=== PATIENT | male | born 1960 | race Caucasian/White ===

== ENCOUNTER 2018-03-19 03:53 | Inpatient (IN) | payer OTHER ==
[2018-03-19] VITALS (10 sets, daily range): BP systolic 94–160; BP diastolic 59–96
[~2018-03-19] VITALS: Ht 188 cm; Wt 78.5 kg
[~2018-03-19 03:53] MED LIST: ASPI-496 PO; ATOR-2 PO; LISI2.5T PO; METO25TA35 PO; PRAS10TA4 PO; VIVANCE PO
[2018-03-19] MEDS ORDERED: ASPIRIN 81 MG TABLET CHEW ONE (04:21)
[2018-03-19] MEDS ORDERED: ASPIRIN 325 MG TABLET PO ONE (04:30)
[2018-03-19] MEDS ORDERED: ASPIRIN 81 MG TABLET CHEW PO ONE (04:30)
[2018-03-19 04:45] LABS: BASOPHILS # (AUTO) 0.04 x10^3/uL (0-0.1); BASOPHILS % (AUTO) 1 % (0-1); EOSINOPHILS # (AUTO) 0.14 x10^3/uL (0-0.4); EOSINOPHILS % (AUTO) 2 % (1-7); LYMPHOCYTES # (AUTO) 0.93 x10^3/uL (1-3.4); LYMPHOCYTES % (AUTO) 13 % (22-44); MD NO; MEAN CORPUSCULAR HEMOGLOBIN 31.8 pg (27.5-34.5); MEAN CORPUSCULAR HGB CONC 34.1 g/dL (33.2-36.2); MEAN CORPUSCULAR VOLUME 93.1 fL (81-97); MEAN PLATELET VOLUME 8.6 fL (7.4-10.4); MONOCYTES # (AUTO) 0.57 x10^3/uL (0.2-0.8); MONOCYTES % (AUTO) 8 % (2-9); NEUTROPHILS # (AUTO) 5.67 x10^3/uL (1.8-6.8); NEUTROPHILS % (AUTO) 77 % (42-75); PLATELET COUNT 144 x10^3/uL (130-400); RED BLOOD COUNT 5.31 x10^6/uL (4.38-5.82); RED CELL DISTRIBUTION WIDTH 12.7 % (9.4-14.8)
[2018-03-19 04:53] LABS: ALANINE AMINOTRANSFERASE 63 U/L (12-78); ALBUMIN 3.9 g/dL (3.4-5.0); ANION GAP 8 mmol/L (5-15); CALCIUM 8.7 mg/dL (8.5-10.1); CHLORIDE 108 mmol/L (98-107); CREATININE 1.09 mg/dL (0.7-1.3)
[2018-03-19 05:12] LABS: ALKALINE PHOSPHATASE 63 U/L (45-117); BILIRUBIN,TOTAL 0.8 mg/dL (0.2-1.0); TOTAL PROTEIN 7.2 g/dL (6.4-8.2)
[2018-03-19 05:13] LABS: TROPONIN I < 0.015 ng/mL (0.000-0.045)
[2018-03-19] MEDS ORDERED: morphine SULFATE 10 MG/ML, 1ML IVPush PRN ×2 (07:30→12:00)
[2018-03-19] MEDS ORDERED: NITROGLYCERIN 0.4 MG/SPRAY SL PRN (10:30)
[2018-03-19] MEDS: NITROGLYCERIN 0.4 MG BOTTLE (25 TABS) SL PRN ×3 (10:55→11:09)
[2018-03-19] MEDS ORDERED: ASPIRIN 81 MG TABLET EC PO SCH (12:00)
[2018-03-19] MEDS ORDERED: NITROGLYCERIN 0.4 MG BOTTLE (25 TABS) SL PRN (12:00)
[2018-03-19] MEDS: VYVANSE HOMEMEDPO SCH (12:00)
[2018-03-19] MEDS ORDERED: hydrALAzine 20 MG/ML, 1ML IVPush PRN (12:00)
[2018-03-19] MEDS ORDERED: ACETAMINOPHEN 325 MG TABLET PO PRN (12:00)
[2018-03-19] MEDS ORDERED: ONDANSETRON 2MG/ML, 2ML IVPush PRN (12:00)
[2018-03-19] MEDS ORDERED: PRASUGREL 10 MG TABLET PO SCH (12:00)
[2018-03-19] MEDS ORDERED: HYDROcodone/APAP 5/325 TABLET PO PRN (12:00)
[2018-03-19] MEDS ORDERED: TEMAZEPAM 15 MG CAPSULE PO PRN (12:00)
[2018-03-19 12:08] LABS: TROPONIN I < 0.015 ng/mL (0.000-0.045)
[2018-03-19] MEDS ORDERED: LISI-167 PO (13:17)
[2018-03-19] MEDS ORDERED: TIOT4MIS3 INH (13:17)
[2018-03-19] MEDS ORDERED: CLON0.5T11 PO (13:17)
[2018-03-19] MEDS ORDERED: GUAIFENESIN ER 600 MG TABLET ONE (13:43)
[2018-03-19] MEDS: GUAIFENESIN ER 600 MG TABLET PO SCH ×2 (13:48→20:19)
[2018-03-19] MEDS: ENOXAPARIN 40 MG/0.4 ML SQ SCH (13:48)
[2018-03-19] MEDS ORDERED: ALBUTEROL/IPRATROPIUM 2.5MG/0.5MG, 3 ML ONE (13:52)
[2018-03-19] MEDS ORDERED: ALBUTEROL SULFATE 2.5 MG/3 ML NPPB SCH (14:00)
[2018-03-19 17:42] LABS: TROPONIN I < 0.015 ng/mL (0.000-0.045)
[2018-03-19] MEDS: METOPROLOL TARTRATE 25 MG TABLET PO SCH (18:00)
[2018-03-19] MEDS ORDERED: METOPROLOL TARTRATE 25 MG TABLET PO SCH (18:00)
[2018-03-19] MEDS: ATORVASTATIN 80 MG TABLET PO SCH (20:20)
[2018-03-19] MEDS: ALBUTEROL/IPRATROPIUM 2.5MG/0.5MG, 3 ML NPPB SCH (21:00)
[2018-03-19] MEDS ORDERED: ATORVASTATIN 80 MG TABLET PO SCH (21:00)
[2018-03-20 00:55] VITALS: BP 127/84
[2018-03-20 05:56] LABS: BASOPHILS # (AUTO) 0.03 x10^3/uL (0-0.1); BASOPHILS % (AUTO) 1 % (0-1); EOSINOPHILS # (AUTO) 0.08 x10^3/uL (0-0.4); EOSINOPHILS % (AUTO) 2 % (1-7); LYMPHOCYTES # (AUTO) 1.13 x10^3/uL (1-3.4); LYMPHOCYTES % (AUTO) 21 % (22-44); MD NO; MEAN CORPUSCULAR HEMOGLOBIN 31.8 pg (27.5-34.5); MEAN CORPUSCULAR VOLUME 93.8 fL (81-97); MEAN PLATELET VOLUME 8.4 fL (7.4-10.4); MONOCYTES # (AUTO) 0.48 x10^3/uL (0.2-0.8); MONOCYTES % (AUTO) 9 % (2-9); NEUTROPHILS # (AUTO) 3.65 x10^3/uL (1.8-6.8); NEUTROPHILS % (AUTO) 68 % (42-75); PLATELET COUNT 127 x10^3/uL (130-400); RED BLOOD COUNT 4.87 x10^6/uL (4.38-5.82); RED CELL DISTRIBUTION WIDTH 12.8 % (9.4-14.8)
[2018-03-20 06:06] LABS: ALANINE AMINOTRANSFERASE 44 U/L (12-78); ALBUMIN 3.5 g/dL (3.4-5.0); ANION GAP 8 mmol/L (5-15); CALCIUM 8.7 mg/dL (8.5-10.1); CHLORIDE 110 mmol/L (98-107)
[2018-03-20 06:09] LABS: ALKALINE PHOSPHATASE 54 U/L (45-117); BILIRUBIN,TOTAL 0.7 mg/dL (0.2-1.0); CREATININE 0.93 mg/dL (0.7-1.3); TOTAL PROTEIN 6.3 g/dL (6.4-8.2)
[2018-03-20 07:20] VITALS: BP 125/83
[2018-03-20] MEDS: ALBUTEROL/IPRATROPIUM 2.5MG/0.5MG, 3 ML NPPB SCH ×2 (07:35→21:10)
[2018-03-20] MEDS: STIOLTO 2.5 MCG INH SCH (09:00)
[2018-03-20] MEDS: VYVANSE HOMEMEDPO SCH (09:00)
[2018-03-20] MEDS: PANTOPROZOLE 40MG TABLET PO SCH (09:15)
[2018-03-20] MEDS: METOPROLOL TARTRATE 25 MG TABLET PO SCH ×2 (09:15→20:27)
[2018-03-20] MEDS: PRASUGREL 10 MG TABLET PO SCH (09:16)
[2018-03-20] MEDS: GUAIFENESIN ER 600 MG TABLET PO SCH ×2 (09:16→20:27)
[2018-03-20] MEDS: ASPIRIN 81 MG TABLET EC PO SCH (09:16)
[2018-03-20] MEDS: ENOXAPARIN 40 MG/0.4 ML SQ SCH (12:46)
[2018-03-20 12:55] VITALS: BP 97/65
[2018-03-20 19:03] VITALS: BP 136/82
[2018-03-20] MEDS: ATORVASTATIN 80 MG TABLET PO SCH (20:27)
[2018-03-21 01:57] VITALS: BP 139/89
[2018-03-21] MEDS: VYVANSE HOMEMEDPO SCH (07:36)
[2018-03-21] MEDS ORDERED: REGADENOSON 0.4 MG/5 ML SYRINGE ONE (07:38)
[2018-03-21 07:46] VITALS: BP 160/99
[2018-03-21] MEDS: ALBUTEROL/IPRATROPIUM 2.5MG/0.5MG, 3 ML NPPB SCH (08:13)
[2018-03-21] MEDS: METOPROLOL TARTRATE 25 MG TABLET PO SCH (09:00)
[2018-03-21] MEDS: PANTOPROZOLE 40MG TABLET PO SCH (10:12)
[2018-03-21] MEDS: ASPIRIN 81 MG TABLET EC PO SCH (10:12)
[2018-03-21] MEDS: PRASUGREL 10 MG TABLET PO SCH (10:12)
[2018-03-21] MEDS: GUAIFENESIN ER 600 MG TABLET PO SCH (10:13)
[2018-03-21] MEDS: STIOLTO 2.5 MCG INH SCH (10:16)
[2018-03-21] MEDS: ENOXAPARIN 40 MG/0.4 ML SQ SCH (12:49)
[2018-03-21] MEDS ORDERED: ESOM20SU PO (13:32)
[2018-03-21] MEDS ORDERED: NAPR-856 PO (13:32)
== END 2018-03-21 15:34 | disposition home or self-care (01) | DRG 392 ==
LOC: ED 04:28 → EDIP 06:06 → 5SO 07:17 → DCLOUNGE 03-21 14:56
PROVIDERS: ADMIT Family Medicine; ATTEND Internal Medicine
DX: K21.9 Gastro-esophageal reflux disease without esophagitis (principal); I25.10 Atherosclerotic heart disease of native coronary artery without angina pectoris; I25.2 Old myocardial infarction; I10 Essential (primary) hypertension; G47.33 Obstructive sleep apnea (adult) (pediatric); F17.200 Nicotine dependence, unspecified, uncomplicated; J44.9 Chronic obstructive pulmonary disease, unspecified; E78.5 Hyperlipidemia, unspecified; E78.00 Pure hypercholesterolemia, unspecified; Z86.74 Personal history of sudden cardiac arrest; Z95.5 Presence of coronary angioplasty implant and graft; Z82.49 Family history of ischemic heart disease and other diseases of the circulatory system; Z80.3 Family history of malignant neoplasm of breast; Z80.1 Family history of malignant neoplasm of trachea, bronchus and lung; Z80.0 Family history of malignant neoplasm of digestive organs
CPT/HCPCS: 36415; 99285; J7613; J7620; 71045; 78452; 80053; 83735; 83880; 84100; 84443; 84484; 85025; 90656; 93005; 93017; 93306; 94640; G0378; J1650; J2785; A9502; C9898

== ENCOUNTER 2020-11-19 09:36 | Inpatient (IN) | payer OTHER ==
[~2020-11-19] VITALS: Ht 188 cm; Wt 75.5 kg
[~2020-11-19 09:36] MED LIST changes: +CLON-364 PO; +ESOM20SU PO; +LISI-167 PO; +NAPR-856 PO; +TIOT4MIS3 INH
--- NOTE | 2020-11-19 09:36 | NUR ---
Pt self-transferred from EMS rcrestline across room to ED rcrestline with steady gait and noted dyspnea with exertion. Placed in gown, on full monitor, EKG request from eligibility technician made and awaiting their arrival at bedside, and tree deadener completed.
--- NOTE | 2020-11-19 09:45 | NUR ---
MD at bedside for exam. ink technician arrival at bedside for EKG.
[2020-11-19] MEDS ORDERED: METOPROLOL 1 MG/ML, 5ML IVPush ONE ×2 (10:00→11:30)
[2020-11-19] MEDS ORDERED: SODIUM CHLORIDE FLUSH 10ML SYR IVF ONE (10:00)
--- NOTE | 2020-11-19 10:00 | NUR ---
Repeat EKG being done now. IV started with labs drawn and sent to lab. PCXR awaiting entry to room now.
[2020-11-19 10:12] LABS: BASOPHILS % (AUTO) 1 % (0-1); EOSINOPHILS % (AUTO) 0 % (1-7); LYMPHOCYTES % (AUTO) 4 % (22-44); MEAN CORPUSCULAR HEMOGLOBIN 33.4 pg (27.5-34.5); MEAN CORPUSCULAR HGB CONC 35.5 g/dL (33.2-36.2); MEAN PLATELET VOLUME 7.7 fL (7.4-10.4); MONOCYTES % (AUTO) 5 % (2-9); NEUTROPHILS % (AUTO) 91 % (42-75); PLATELET COUNT 154 x10^3/uL (130-400); RED BLOOD COUNT 5.22 x10^6/uL (4.38-5.82); RED CELL DISTRIBUTION WIDTH 14.4 % (9.4-14.8)
--- NOTE | 2020-11-19 10:15 | NUR ---
Pt assisted to restroom across the vargas for BM and UOP.
[2020-11-19 10:24] LABS: ALBUMIN 3.3 g/dL (3.4-5.0); ANION GAP 12 mmol/L (5-15); CALCIUM 9.4 mg/dL (8.5-10.1); CHLORIDE 102 mmol/L (98-107)
[2020-11-19] MEDS ORDERED: METOPROLOL 1 MG/ML, 5ML ONE ×2 (10:28→11:27)
[2020-11-19 10:30] LABS: ALANINE AMINOTRANSFERASE 43 U/L (12-78); ALKALINE PHOSPHATASE 92 U/L (45-117); BILIRUBIN,TOTAL 1.4 mg/dL (0.2-1.0); CREATININE 0.91 mg/dL (0.7-1.3); TROPONIN I < 0.015 ng/mL (0.000-0.045)
--- NOTE | 2020-11-19 10:31 | NUR ---
VS reassessed with continued significant HTN present. SR with frequent PVC's noted. Metoprolol IVP given as ordered.
[2020-11-19] MEDS ORDERED: METO50TA82 PO (10:43)
--- NOTE | 2020-11-19 11:33 | NUR ---
Pt remedicated with second dose of Metoprolol as ordered. VS Q15 minutes will continue for next hour, pt aware. Pt notified of added D dimer. Education on significance of this lab and what will happen next if elevated provided.
--- NOTE | 2020-11-19 12:45 | NUR ---
aware of continued HTN. No orders received at this time. Pt awaiting CTA.
--- NOTE | 2020-11-19 12:58 | NUR ---
Pt to CT.
[2020-11-19] MEDS ORDERED: OMNIPAQUE 350 MG/ML, 100ML BOTTLE ONE (13:20)
[2020-11-19] MEDS ORDERED: NITROGLYCERIN SINGLE TAB 0.4 MG SL ONE (13:47)
[2020-11-19] MEDS: NITROGLYCERIN 0.4 MG BOTTLE (25 TABS) SL PRN ×2 (13:50→14:01)
--- NOTE | 2020-11-19 13:52 | NUR ---
NTG tab given for continued 3/10 chest heaviness and significant HTN as per MD orders.
--- NOTE | 2020-11-19 14:01 | NUR ---
Repeat NTG SL given for continued chest heaviness and HTN with some resolution after initial dose given.
--- NOTE | 2020-11-19 14:07 | NUR ---
Pt states heaviness in chest is resolved and Systolic HTN resolved with continued Diastolic HTN present on reassessment after second NTG dose.
--- NOTE | 2020-11-19 14:46 | NUR ---
Report called to Noe RN and pt readied for transfer to floor. Hospitalist at bedside with pt now.
[2020-11-19] MEDS ORDERED: ONDANSETRON ODT 4 MG PO PRN (15:00)
[2020-11-19] MEDS ORDERED: ONDANSETRON 2MG/ML, 2ML IVPush PRN (15:00)
[2020-11-19] MEDS ORDERED: LABETALOL 5MG/ML, 20ML IVPush PRN (15:00)
[2020-11-19] MEDS ORDERED: morphine SULFATE 10 MG/ML, 1ML IVPush PRN (15:00)
[2020-11-19 15:27] VITALS: BP 157/116
[2020-11-19] MEDS ORDERED: POTASSIUM CHLORIDE 20 MEQ TAB.ER.PRT PO ONE (15:30)
[2020-11-19 16:23] LABS: TROPONIN I < 0.015 ng/mL (0.000-0.045)
[2020-11-19 16:24] LABS: INTERNATIONAL NORMALIZED RATIO 1.04 (0.93-1.1); PROTHROMBIN TIME 11.1 Seconds (9.6-11.5)
[2020-11-19] MEDS: METOPROLOL TARTRATE 50 MG TAB PO SCH ×3 (17:18→20:41)
[2020-11-19] MEDS: HEPARIN 5,000 UNITS/ML, 1ML SQ SCH ×2 (17:19→23:47)
[2020-11-19 18:47] VITALS: BP 172/112
[2020-11-19 18:54] VITALS: BP 151/99
[2020-11-19] MEDS: ACETAMINOPHEN 325 MG TABLET PO PRN (20:41)
[2020-11-19] MEDS: ATORVASTATIN 80 MG TABLET PO SCH (20:41)
[2020-11-19] MEDS ORDERED: METOPROLOL TARTRATE 50 MG TAB PO SCH (21:00)
[2020-11-19 21:23] LABS: TROPONIN I < 0.015 ng/mL (0.000-0.045)
[2020-11-20 02:00] VITALS: BP 155/95
[2020-11-20] MEDS ORDERED: OMNIPAQUE 350 MG/ML, 100ML BOTTLE ONE (04:06)
[2020-11-20 06:55] LABS: BASOPHILS % (AUTO) 0 % (0-1); CHLORIDE 103 mmol/L (98-107); EOSINOPHILS % (AUTO) 1 % (1-7); LYMPHOCYTES % (AUTO) 9 % (22-44); MEAN CORPUSCULAR HEMOGLOBIN 33.1 pg (27.5-34.5); MEAN CORPUSCULAR HGB CONC 34.7 g/dL (33.2-36.2); MEAN PLATELET VOLUME 7.7 fL (7.4-10.4); MONOCYTES % (AUTO) 7 % (2-9); NEUTROPHILS % (AUTO) 83 % (42-75); PLATELET COUNT 128 x10^3/uL (130-400); RED BLOOD COUNT 4.58 x10^6/uL (4.38-5.82); RED CELL DISTRIBUTION WIDTH 14.9 % (9.4-14.8)
[2020-11-20 07:02] LABS: ANION GAP 6 mmol/L (5-15); CALCIUM 8.5 mg/dL (8.5-10.1); CREATININE 0.84 mg/dL (0.7-1.3)
[2020-11-20 07:19] VITALS: BP 148/104
[2020-11-20] MEDS ORDERED: TEMPLATE NON-FORMULARY MED. (Tiotropium Br/Olodaterol HCl (Stiolto Respimat Inhal Spray) 2 INH SCH (09:00)
[2020-11-20] MEDS: HEPARIN 5,000 UNITS/ML, 1ML SQ SCH ×3 (09:11→21:03)
[2020-11-20] MEDS: METOPROLOL TARTRATE 50 MG TAB PO SCH ×3 (09:11→21:03)
[2020-11-20] MEDS: LOSARTAN 25MG TABLET PO SCH ×2 (09:11→21:03)
[2020-11-20] MEDS: ACETAMINOPHEN 325 MG TABLET PO PRN (09:27)
[2020-11-20] MEDS ORDERED: ALBUTEROL SULFATE 2.5 MG/3 ML HHN SCH (10:00)
[2020-11-20 13:43] VITALS: BP 148/94
[2020-11-20] MEDS: SODIUM CHLORIDE 0.9% 1,000 ML IV SCH (13:51)
[2020-11-20] MEDS ORDERED: ALBUTEROL/IPRATROPIUM 2.5MG/0.5MG, 3 ML ONE (14:14)
[2020-11-20] MEDS: ALBUTEROL/IPRATROPIUM 2.5MG/0.5MG, 3 ML NPPB SCH ×2 (14:15→20:00)
[2020-11-20] MEDS ORDERED: ALBUTEROL/IPRATROPIUM 2.5MG/0.5MG, 3 ML NPPB PRN (14:30)
[2020-11-20] MEDS ORDERED: ALBUTEROL HFA 90 MCG/SPRAY INH SCH (15:00)
[2020-11-20 16:05] VITALS: BP 130/89
[2020-11-20] MEDS ORDERED: ALBUTEROL SULFATE 2.5 MG/3 ML NPPB SCH (18:00)
[2020-11-20 18:45] VITALS: BP 142/94
[2020-11-20] MEDS: ATORVASTATIN 80 MG TABLET PO SCH (21:03)
[2020-11-21 01:43] VITALS: BP 132/87
[2020-11-21] MEDS: SODIUM CHLORIDE 0.9% 1,000 ML IV SCH ×2 (05:10→10:00)
[2020-11-21] MEDS: ALBUTEROL/IPRATROPIUM 2.5MG/0.5MG, 3 ML NPPB SCH ×4 (07:00→20:00)
[2020-11-21 07:26] VITALS: BP 147/97
[2020-11-21] MEDS: METOPROLOL TARTRATE 50 MG TAB PO SCH (08:14)
[2020-11-21] MEDS: LOSARTAN 25MG TABLET PO SCH ×2 (08:14→20:54)
[2020-11-21] MEDS: HEPARIN 5,000 UNITS/ML, 1ML SQ SCH ×3 (08:14→20:54)
[2020-11-21] MEDS ORDERED: TIOTROPIUM BROMIDE 18 MCG/INH INH SCH (09:00)
[2020-11-21 13:50] VITALS: BP 139/92
[2020-11-21 20:41] VITALS: BP 149/99
[2020-11-21] MEDS: METOPROLOL TARTRATE 100 MG TAB PO SCH (20:53)
[2020-11-21] MEDS: ATORVASTATIN 80 MG TABLET PO SCH (20:53)
[2020-11-21] MEDS: ACETAMINOPHEN 325 MG TABLET PO PRN (20:54)
[2020-11-21] MEDS ORDERED: LORazepam 1MG TABLET PO ONE (22:30)
[2020-11-22] MEDS: SODIUM CHLORIDE 0.9% 1,000 ML IV SCH ×2 (02:40→19:20)
[2020-11-22 03:16] VITALS: BP 158/90
[2020-11-22 06:17] VITALS: BP 140/102
[2020-11-22] MEDS: METOPROLOL TARTRATE 100 MG TAB PO SCH ×2 (09:00→20:22)
[2020-11-22] MEDS: ALBUTEROL/IPRATROPIUM 2.5MG/0.5MG, 3 ML NPPB SCH ×4 (09:00→20:11)
[2020-11-22] MEDS ORDERED: METOPROLOL TARTRATE 50 MG TAB ONE (09:42)
[2020-11-22] MEDS: HEPARIN 5,000 UNITS/ML, 1ML SQ SCH ×2 (09:46→18:39)
[2020-11-22] MEDS: LOSARTAN 25MG TABLET PO SCH ×2 (09:46→20:22)
[2020-11-22] MEDS: AMLODIPINE 5 MG TABLET PO SCH (09:52)
[2020-11-22 13:02] VITALS: BP 128/93
[2020-11-22 19:30] VITALS: BP 126/87
[2020-11-22] MEDS: ATORVASTATIN 80 MG TABLET PO SCH (20:22)
[2020-11-22] MEDS: ACETAMINOPHEN 325 MG TABLET PO PRN (20:22)
[2020-11-22] MEDS ORDERED: TEMAZEPAM 15 MG CAPSULE PO PRN (20:30)
[2020-11-23 01:06] VITALS: BP 132/82
[2020-11-23] MEDS: HEPARIN 5,000 UNITS/ML, 1ML SQ SCH ×2 (02:50→10:59)
[2020-11-23 09:10] VITALS: BP 134/91
[2020-11-23] MEDS ORDERED: METOPROLOL TARTRATE 50 MG TAB ONE (09:19)
[2020-11-23] MEDS: AMLODIPINE 5 MG TABLET PO SCH (09:23)
[2020-11-23] MEDS: LOSARTAN 25MG TABLET PO SCH (09:23)
[2020-11-23] MEDS: METOPROLOL TARTRATE 100 MG TAB PO SCH (09:24)
[2020-11-23] MEDS: ALBUTEROL/IPRATROPIUM 2.5MG/0.5MG, 3 ML NPPB SCH (09:44)
[2020-11-23] MEDS ORDERED: IPRA4AER PO (10:40)
[2020-11-23] MEDS ORDERED: AMLO-150 PO (10:40)
[2020-11-23] MEDS ORDERED: METO-99 PO (10:40)
[2020-11-23] MEDS ORDERED: LOSA25TA25 PO (10:40)
== END 2020-11-23 14:15 | disposition home or self-care (01) | DRG 300 ==
LOC: ED 11:20 → 5SO 13:40
PROVIDERS: ADMIT Family Medicine; ATTEND Family Medicine
DX: I71.6 Thoracoabdominal aortic aneurysm, without rupture (principal); J44.1 Chronic obstructive pulmonary disease with (acute) exacerbation; E87.1 Hypo-osmolality and hyponatremia; Z20.822 Contact with and (suspected) exposure to COVID-19; E87.6 Hypokalemia; E78.5 Hyperlipidemia, unspecified; F10.10 Alcohol abuse, uncomplicated; G47.30 Sleep apnea, unspecified; F90.9 Attention-deficit hyperactivity disorder, unspecified type; F17.200 Nicotine dependence, unspecified, uncomplicated; I10 Essential (primary) hypertension; I16.0 Hypertensive urgency; I25.10 Atherosclerotic heart disease of native coronary artery without angina pectoris; I25.2 Old myocardial infarction; Z80.0 Family history of malignant neoplasm of digestive organs; Z80.1 Family history of malignant neoplasm of trachea, bronchus and lung; Z80.3 Family history of malignant neoplasm of breast; Z82.49 Family history of ischemic heart disease and other diseases of the circulatory system; Z86.74 Personal history of sudden cardiac arrest; Z95.5 Presence of coronary angioplasty implant and graft; Z79.899 Other long term (current) drug therapy
CPT/HCPCS: 36415; 71045; 71275; 74174; 80048; 80053; 83735; 84484; 85025; 85379; 85610; 93005; 93306; 94640; 96374; 96375; G0378; J1644; Q9967; U0005; J7030; U0003